=== PATIENT | female | born 2000 | race African-American/Black ===

== ENCOUNTER 2025-04-09 16:50 | Emergency (ER) | payer OTHER ==
[~2025-04-09] VITALS: Ht 165.1 cm; Wt 101.9 kg
[2025-04-09 17:55] LABS: BASO # 0.0 10^3/uL (0.0-0.2); BASO % 0.5 % (0.0-1.0); EOS # 0.2 10^3/uL (0.0-0.5); EOS % 2.2 % (0.0-3.0); LYMPH # 2.8 10^3/uL (1.5-5.0); LYMPH % 33.4 % (24.0-44.0); MONO # 0.3 10^3/uL (0.0-0.8); MONO % 3.3 % (2.0-8.0); NEUTROPHILS # 5.0 10^3/uL (1.5-8.5); NEUTROPHILS % 60.5 % (36.0-66.0); PLATELET COUNT, AUTOMATED 363 10^3/uL (150-450)
[2025-04-09 18:21] LABS: CPK CREATINE PHOSPHOKINASE 78 U/L (34-145)
[2025-04-09 18:22] LABS: CALCIUM LEVEL 9.6 MG/DL (8.5-10.1); CARBON DIOXIDE LEVEL 29 MMOL/L (20-31); CHLORIDE LEVEL 104 MMOL/L (98-107); CK-MB VALUE MASS < 1.0 NG/ML (<3.6); CREATININE FOR GFR 0.78 MG/DL (0.55-1.30); GLOMERULAR FILTRATION RATE > 90.0 (>60); POTASSIUM SERUM 3.7 MMOL/L (3.5-5.1); SODIUM LEVEL 143 MMOL/L (136-145)
[2025-04-09 18:27] LABS: HCG, SERUM QUALITATIVE NEGATIVE (NEGATIVE)
[2025-04-09] MEDS: IPRATROPIUM 0.5 MG/ALBUTEROL 2.5 MG INH SOL UD 3 ML NEB ONE (20:10)
[2025-04-09] MEDS ORDERED: VENTAER INH (21:12)
[2025-04-09 21:27] VITALS: BP 124/84; TEMP 97.8; O2SAT 100
== END 2025-04-09 21:35 | disposition home or self-care (01) ==
LOC: EDBD 16:50 → M ED 16:50
DX: J45.901 Unspecified asthma with (acute) exacerbation (principal)

== ENCOUNTER → 2025-04-25 | Outpatient (CLI) | payer OTHER ==
[~2025-04-25] MED LIST: VENTAER INH
== END ==
LOC: M LAB 17:33
PROVIDERS: ATTEND Obstetrics & Gynecology Reproductive Endocrinology
DX: Z31.49 Encounter for other procreative investigation and testing (principal)